=== PATIENT | female | born 1980 | race Caucasian/White ===

== ENCOUNTER → 2020-10-19 01:41 | Outpatient (CLI) | payer BC, SELFPAY ==
[2020-10-19 19:16] LABS: SARS-CoV-2 RNA PCR Negative
== END ==
PROVIDERS: PCP Family Medicine; Visit Provider Internal Medicine Gastroenterology
DX: Z01.812 Encounter for preprocedural laboratory examination (principal); Z20.822 Contact with and (suspected) exposure to COVID-19
CPT/HCPCS: C9803; U0003; U0005

== ENCOUNTER 2020-10-22 00:39 | Day surgery (SDC) | payer BC, SELFPAY ==
[2020-10-15 14:28] VITALS: BMI 28.5
--- NOTE | 2020-10-22 10:45 | WPDANESEPPF ---
Anes - Initial Pre Proc Eval Procedure: Operation Date: 10/22/20 11:45 Proposed Procedures p Esophagogastroduodenoscopy - Ashok Soriano MD Date/Time: 10/22/20 10:45 Surgeon: Ashok Soriano MD Pre Op Diagnosis: GERD Patient Data Age: 40 Gender: F Height: 1.6 m Weight: 73 kg Allergies Allergy/AdvReac Type Severity Reaction Status Date / Time No Known Allergies Allergy Unknown Verified 10/22/20 10:34 Home Medications Medication Instructions Recorded Confirmed Type sertraline 50 mg tablet 50 mg PO DAILY 07/04/19 10/22/20 History L norgest/E estradiol-E estrad 1 tablet PO DAILY 06/17/20 10/22/20 History 0.15 mg-30 mcg (84)/10 mcg(7) tabs,3mos rosuvastatin 5 mg tablet 5 mg PO DAILY #30 tablet 09/30/20 10/22/20 Rx levothyroxine 100 mcg tablet 100 mcg PO DAILY #90 tablet 10/10/20 10/22/20 Rx pantoprazole 40 mg PO QAM 10/15/20 10/22/20 History famotidine 20 mg tablet 20 mg PO QHS #30 tablet 10/22/20 Rx Patient hx anesthesia problems: none Family hx anesthesia problems: none PMFSH Past Medical History Medical History (Updated 10/21/20 @ 10:58 by Ki Obregon DO) Adult hypothyroidism Depression SHANNEN (generalized anxiety disorder) Gestational diabetes Hypothyroidism Mixed hyperlipidemia (normal spontaneous vaginal delivery) depression Family History Family History Grandparent Acute myocardial infarction Social History Social History Social History: Smoking status: Never smoker Second hand tobacco smoke exposure: No Alcohol intake: current Drinks per week: 2 Substance use: never Substance use type: does not use Living arrangements: with family Additional occupation/education comments: stay at home mom Gender identity (if verbalized by the patient): Female Spiritual care concerns: No Anes - Eval Final PreProcedure Day of Procedure 10/22/20 10:45 Patient weight: overweight Heart: regular rate and rhythm Lungs: clear to auscultation and normal air movement Airway: Mallampati scale class II Neurological: alert and oriented Last oral intake: >/= 8 hours ASA classification: III Emergent: no Anesthetic plan: proceed Anesthesia type and monitoring: general GIVS and standard monitoring Informed Consent: The patient's anesthetic plan and its attendant risks and benefits were discussed with the patient/family/POA. Questions were solicited and answers provided to the satisfaction of the patient/family/POA.
[2020-10-22 10:52] VITALS: BP 136/84; PULSE 86; RESP 18; TEMP 36.2; O2SAT 99; BMI 28.7
[2020-10-22] MEDS: LACTATED RINGERS 1,000 ML 150 ML IV CONT (11:02)
--- NOTE | 2020-10-22 11:24 | PM.HPGS ---
History of Present Illness History of Present Illness Consent: Risks, benefits, and alternatives have been discussed and questions answered. Patient agrees to proceed with procedure. Chief complaint: GERD Narrative: Bekah Colon is a 40 year old female with gerd on protonix and pepcid, still symptomatic some days, never had egd Review of Systems Constitutional: Constitutional: Denies headache(s) and Denies weakness Eyes: Eyes: Denies blurry vision ENT: Reports Normal hearing present, Denies headache(s) and Denies neck pain Cardiovascular: Cardiovascular: Denies chest pain and Denies dyspnea Respiratory: Respiratory: Denies dyspnea Gastrointestinal: Gastrointestinal: Reports no additional gastrointestinal complaints Genitourinary: Genitourinary: Denies dysuria Musculoskeletal: Musculoskeletal: Denies neck pain Integumentary/Breasts: Skin/Breast: Denies dry skin Neurologic: Reports Normal hearing present, Denies headache(s) and Denies weakness Psychiatric: Psychiatric: Denies anxiety Endocrine: Endocrine: Denies change in body appearance Hematologic/Lymphatic: Hematologic/Lymphatic: Denies easy bleeding Allergic/Immunologic: Allergic/Immunologic: Denies urticaria PMFSH Past Medical History Medical History (Updated 10/21/20 @ 10:58 by Ki Obregon DO) Adult hypothyroidism Depression SHANNEN (generalized anxiety disorder) Gestational diabetes Hypothyroidism Mixed hyperlipidemia (normal spontaneous vaginal delivery) depression Family History Family History Grandparent Acute myocardial infarction Social History Social History Social History: Smoking status: Never smoker Second hand tobacco smoke exposure: No Alcohol intake: current Drinks per week: 2 Substance use: never Substance use type: does not use Living arrangements: with family Additional occupation/education comments: stay at home mom Gender identity (if verbalized by the patient): Female Spiritual care concerns: No Meds Home Medications and Allergies Home Medications Medication Instructions Recorded Confirmed Type sertraline 50 mg tablet 50 mg PO DAILY 07/04/19 10/22/20 History L norgest/E estradiol-E estrad 1 tablet PO DAILY 06/17/20 10/22/20 History 0.15 mg-30 mcg (84)/10 mcg(7) tabs,3mos rosuvastatin 5 mg tablet 5 mg PO DAILY #30 tablet 09/30/20 10/22/20 Rx levothyroxine 100 mcg tablet 100 mcg PO DAILY #90 tablet 10/10/20 10/22/20 Rx pantoprazole 40 mg PO QAM 10/15/20 10/22/20 History famotidine 20 mg tablet 20 mg PO QHS #30 tablet 10/22/20 Rx Allergies Allergy/AdvReac Type Severity Reaction Status Date / Time No Known Allergies Allergy Unknown Verified 10/22/20 10:34 Vital Signs Vital Signs - 24 hr 10/22/20 10:52 Temperature 97.2 F L Pulse Rate 86 Respiratory Rate 18 Blood Pressure 136/84 Pulse Oximetry 99 Exam Const: General: comfortable and no acute distress HENMT: General nose exam: Normal nares present Eyes: General: appearance normal, both eyes and all related structures Neck: Neck: no JVD Resp: Auscultation: clear to auscultation bilaterally Cardio: Rate: regular rate Rhythm: regular rhythm GI: Inspection: non-distended GI Palp: Yes Soft to palpation Skin: General skin exam: normal color Neuro: General: gait normal Speech: normal speech Extrem: General: normal to inspection Psych: Mental Status: mental status grossly normal Assessment and Plan Assessment and plan (1) GERD (gastroesophageal reflux disease): Code(s): K21.9 - Gastro-esophageal reflux disease without esophagitis Status: Acute Assessment and Plan: egd with bx, already on ppi
[2020-10-22 11:41] VITALS: BP 100/65; PULSE 78; RESP 22; O2SAT 98
[2020-10-22 11:51] VITALS: BP 103/71; PULSE 76; RESP 20; O2SAT 99
[2020-10-22 12:01] VITALS: BP 123/86; PULSE 77; RESP 18; O2SAT 100
== END 2020-10-22 12:13 | disposition home or self-care (01) ==
PROVIDERS: PCP Family Medicine; Visit Provider Internal Medicine Gastroenterology
PROC: 0DJ08ZZ Inspection of Upper Intestinal Tract, Via Natural or Artificial Opening Endoscopic (ICD-10-PCS; CPT 43235; principal; 2020-10-22 11:45)
DX: K21.00 Gastro-esophageal reflux disease with esophagitis, without bleeding (principal); K29.50 Unspecified chronic gastritis without bleeding; K22.70 Barrett's esophagus without dysplasia; E03.9 Hypothyroidism, unspecified; F32.9 Major depressive disorder, single episode, unspecified; E78.2 Mixed hyperlipidemia; F41.1 Generalized anxiety disorder
CPT/HCPCS: 43239; 88305; 88313; C9803; J2704; J7120; U0003; U0005

== ENCOUNTER 2022-07-29 00:29 | Day surgery (SDC) | payer BC, SELFPAY ==
[2022-06-19 09:39] VITALS: BMI 26.6
[2022-07-16 11:56] VITALS: BMI 26.6
[2022-07-29 08:17] VITALS: BP 129/86; PULSE 103; RESP 16; TEMP 35.9; O2SAT 98
[2022-07-29] MEDS: LACTATED RINGERS 1,000 ML 150 ML IV CONT (08:18)
--- NOTE | 2022-07-29 08:53 | WPDANESEPPF ---
Anes - Initial Pre Proc Eval Procedure: Operation Date: 07/29/22 09:30 Proposed Procedures p Esophagogastroduodenoscopy - Ashok Soriano MD Date/Time: 07/29/22 08:53 Surgeon: Ashok Soriano MD Pre Op Diagnosis: GERD, Barretts Esophagus Patient Data Age: 41 Gender: F Height: 1.6 m Weight: 67.4 kg Last Vital Signs Temp 96.7 F L 07/29/22 08:17 Pulse 103 H 07/29/22 08:17 Resp 16 07/29/22 08:17 BP 129/86 07/29/22 08:17 Pulse Ox 98 07/29/22 08:17 O2 Del Method Room Air 07/29/22 08:17 Allergies Allergy/AdvReac Type Severity Reaction Status Date / Time No Known Allergies Allergy Unknown Verified 07/29/22 08:15 Home Medications Medication Instructions Recorded Confirmed Type sertraline 50 mg tablet 75 mg PO DAILY 07/04/19 07/29/22 History pantoprazole 40 mg tablet,delayed 40 mg PO DAILY 06/19/22 07/29/22 History release dextroamphetamine-amphetamine ER 20 mg PO DAILY #10 caps 07/24/22 07/29/22 Rx 20 mg 24hr capsule,extend release (Adderall XR) levothyroxine 125 mcg tablet 125 mcg PO DAILY #14 tabs 07/24/22 07/29/22 Rx Patient hx anesthesia problems: none Family hx anesthesia problems: none Results Review: All pre-operative results and documents have been reviewed as part of the pre-operative evaluation. [facility] Past Medical History Medical History (Updated 06/24/22 @ 10:00 by Luciana Gutierrez NP) Adult hypothyroidism Depression SHANNEN (generalized anxiety disorder) Gastritis GERD (gastroesophageal reflux disease) Gestational diabetes Hypothyroidism Mixed hyperlipidemia (normal spontaneous vaginal delivery) Overweight (BMI 25.0-29.9) depression Family History Family History Grandparent Acute myocardial infarction Unknown Diabetes mellitus Social History Social History Social History: Smoking status: Former smoker Second hand tobacco smoke exposure: No Alcohol intake: current Drinks per week: 2 Alcohol use details: occasionally Substance use: never Substance use type: does not use Living arrangements: with family Occupation/Education: unemployed Additional occupation/education comments: stay at home mom Gender identity (if verbalized by the patient): Female Sexual Orientation (if Verbalized by the Patient): Straight or Heterosexual Spiritual care concerns: No Anes - Eval Final PreProcedure Day of Procedure 07/29/22 08:53 Patient weight: normal Heart: regular rate and rhythm Lungs: clear to auscultation Airway: Mallampati scale class II Neurological: alert and oriented Last oral intake: >/= 8 hours ASA classification: II Emergent: no Anesthetic plan: proceed Anesthesia type and monitoring: general GIVS and standard monitoring Results Review: All pre-operative results and documents have been reviewed as part of the pre-operative evaluation. Informed Consent: The patient's anesthetic plan and its attendant risks and benefits were discussed with the patient/family/POA. Questions were solicited and answers provided to the satisfaction of the patient/family/POA.
--- NOTE | 2022-07-29 09:18 | PM.HPGS ---
History of Present Illness History of Present Illness Consent: Risks, benefits, and alternatives have been discussed and questions answered. Patient agrees to proceed with procedure. Chief complaint: GERD, Barretts Esophagus Narrative: Bekah Colon is a 41 year old female with gerd on protonix, also had short segment mancini's, doing well on ppi Review of Systems Constitutional: Constitutional: Denies headache(s) and Denies weakness Eyes: Eyes: Denies blurry vision ENT: Reports Normal hearing present, Denies headache(s) and Denies neck pain Cardiovascular: Cardiovascular: Denies chest pain and Denies dyspnea Respiratory: Respiratory: Denies dyspnea Gastrointestinal: Gastrointestinal: Reports no additional gastrointestinal complaints Genitourinary: Genitourinary: Denies dysuria Musculoskeletal: Musculoskeletal: Denies neck pain Integumentary/Breasts: Skin/Breast: Denies dry skin Neurologic: Reports Normal hearing present, Denies headache(s) and Denies weakness Psychiatric: Psychiatric: Denies anxiety Endocrine: Endocrine: Denies change in body appearance Hematologic/Lymphatic: Hematologic/Lymphatic: Denies easy bleeding Allergic/Immunologic: Allergic/Immunologic: Denies urticaria [facility] Past Medical History Medical History (Updated 06/24/22 @ 10:00 by Luciana Gutierrez NP) Adult hypothyroidism Depression SHANNEN (generalized anxiety disorder) Gastritis GERD (gastroesophageal reflux disease) Gestational diabetes Hypothyroidism Mixed hyperlipidemia (normal spontaneous vaginal delivery) Overweight (BMI 25.0-29.9) depression Family History Family History Grandparent Acute myocardial infarction Unknown Diabetes mellitus Social History Social History Social History: Smoking status: Former smoker Second hand tobacco smoke exposure: No Alcohol intake: current Drinks per week: 2 Alcohol use details: occasionally Substance use: never Substance use type: does not use Living arrangements: with family Occupation/Education: unemployed Additional occupation/education comments: stay at home mom Gender identity (if verbalized by the patient): Female Sexual Orientation (if Verbalized by the Patient): Straight or Heterosexual Spiritual care concerns: No Meds Home Medications and Allergies Home Medications Medication Instructions Recorded Confirmed Type sertraline 50 mg tablet 75 mg PO DAILY 07/04/19 07/29/22 History pantoprazole 40 mg tablet,delayed 40 mg PO DAILY 06/19/22 07/29/22 History release dextroamphetamine-amphetamine ER 20 mg PO DAILY #10 caps 07/24/22 07/29/22 Rx 20 mg 24hr capsule,extend release (Adderall XR) levothyroxine 125 mcg tablet 125 mcg PO DAILY #14 tabs 07/24/22 07/29/22 Rx Allergies Allergy/AdvReac Type Severity Reaction Status Date / Time No Known Allergies Allergy Unknown Verified 07/29/22 08:15 Vital Signs Vital Signs - 24 hr 07/29/22 08:17 Temperature 96.7 F L Pulse Rate 103 H Respiratory Rate 16 Blood Pressure 129/86 Pulse Oximetry 98 Oxygen Delivery Room Air Exam Const: General: comfortable and no acute distress HENMT: Face/Nose/Sinus: Normal nares present Eyes: General: appearance normal, both eyes and all related structures Neck: Neck: no JVD Resp: Auscultation: clear to auscultation bilaterally Cardio: Rate: regular rate Rhythm: regular rhythm GI: Inspection: non-distended GI Palp: Yes Soft to palpation Skin: General skin exam: normal color Neuro: General: gait normal Speech: normal speech Extrem: General: normal to inspection Psych: Mental Status: mental status grossly normal Assessment and Plan Assessment and plan (1) GERD (gastroesophageal reflux disease): Code(s): K21.9 - Gastro-esophageal reflux disease without esophagitis
[2022-07-29 09:29] VITALS: BP 99/70; PULSE 87; RESP 20; O2SAT 99
[2022-07-29 09:39] VITALS: BP 100/68; PULSE 96; RESP 20; O2SAT 100
[2022-07-29 09:49] VITALS: BP 109/72; PULSE 81; RESP 22; O2SAT 100
== END 2022-07-29 09:57 | disposition home or self-care (01) ==
PROVIDERS: PCP Family Medicine; Visit Provider Internal Medicine Gastroenterology
PROC: 0DJ08ZZ Inspection of Upper Intestinal Tract, Via Natural or Artificial Opening Endoscopic (ICD-10-PCS; CPT 43235; principal; 2022-07-29 09:30)
DX: K21.9 Gastro-esophageal reflux disease without esophagitis (principal); K22.70 Barrett's esophagus without dysplasia; K29.50 Unspecified chronic gastritis without bleeding; E03.9 Hypothyroidism, unspecified; F41.1 Generalized anxiety disorder; F32.A Depression, unspecified; Z87.891 Personal history of nicotine dependence
CPT/HCPCS: 43239; 88305; J2704; J7120

== ENCOUNTER 2023-03-17 08:47 | Outpatient (CLI) | payer BC, SELFPAY ==
--- NOTE | 2023-03-23 20:24 | WPDHOMESLEEP ---
Sleep Study - Home Unattended Date of Study: 03/17/23 Ordering Provider: Xiomara Watts PA-C Interpreting Provider: Nova Oropeza, DO Home Sleep Study Type: Watch PAT Height: 1.6 m Weight: 65.771 kg Body Mass Index: 25.7 Neck Circumference (inches): 13 [place]: 5 Reason for Sleep Study Snoring, witnessed apneas Sleep History The patient is a 42-year-old female that had a sleep study ordered by her primary care for evaluation of sleep apnea. The patient frequently awakens from sleep short of breath. She occasionally awakens at night with heartburn, belching or cough. She frequently snores and is frequently loud enough that others complain. She frequently has trouble sleeping when she has a cold. She occasionally wakes up gasping for air throughout the night. She occasionally has breathing problems at night observed by herself or others. She rarely sweats excessively at night. She rarely has heart palpitations or irregular heartbeats during the night. She occasionally falls asleep during the day but never while driving. She denies sleep paralysis and cataplexy. She denies having trouble at school or work due to sleepiness. She occasionally experiences vivid dreamlike scenes upon awakening or falling asleep. He denies feeling afraid of going to sleep. She denies having nightmares. She occasionally remembers her dreams. She occasionally has thoughts racing through her mind. She denies feeling sad or depressed. She occasionally has anxiety. She rarely has muscular tension. She occasionally notices parts of her body jerk. She occasionally kicks during the night. She frequently has crawling and aching feelings in her legs but denies having leg pain during the night. She denies having jaw pain in the morning. She goes to bed at 10:00 p.m. on weekdays and at 11:00 p.m. on the weekends. It takes her few minutes to fall asleep. She wakes up 3-4 times throughout the night to urinate but it can take up to an hour for her to fall back asleep. She wakes up between 7-7:30 a.m. on both weekdays and weekends. He typically gets 8 hours of sleep per night. She will stay in bed for 1-2 minutes after waking up in the morning. She currently lives with her and 2 children. She denies consuming any caffeinated beverages within 2 hours of bedtime. She denies engaging in physical exercise before bedtime. She will read and watch television before falling asleep. She will occasionally take naps in the afternoon or the evening and they are refreshing. She consumes 2-3 caffeinated beverages per day. She will consume a couple alcoholic beverages on the weekends. She denies tobacco and recreational drug use. [facility] Past Medical History Medical History Adult hypothyroidism Depression SHANNEN (generalized anxiety disorder) Gastritis GERD (gastroesophageal reflux disease) Gestational diabetes Hypothyroidism Mixed hyperlipidemia (normal spontaneous vaginal delivery) Overweight (BMI 25.0-29.9) depression Family History Family History Grandparent Acute myocardial infarction Unknown Diabetes mellitus Social History Social History Social History: Smoking status: Former smoker Second hand tobacco smoke exposure: No Alcohol intake: current Alcohol use details: occasionally Substance use: never Substance use type: does not use Lack of Transportation: No Lack of Food: Never True Current Housing: I Have Housing Concerned About Future Housing: No Difficulty Paying Gas/Electric Bills: No Difficulty Paying for Meds: No Currently Unemployed: YES Education: Decline to Answer Difficulty w/ Childcare or Family Care: No Living arrangements: with family Occupation/Education: unemployed Additional occupation/e
[2023-03-23 20:31] VITALS: BMI 25.7
== END 2023-03-18 13:33 | disposition home or self-care (01) ==
LOC: ANHCSM 08:49
PROVIDERS: PCP Family Medicine; Visit Provider Physician Assistant
DX: R40.0 Somnolence (principal); R06.83 Snoring
CPT/HCPCS: 95800

== ENCOUNTER 2023-05-26 08:06 | Outpatient (CLI) | payer BC, SELFPAY ==
[2023-06-15 16:16] VITALS: BMI 25.7
--- NOTE | 2023-06-15 16:16 | WPDSLEEPSTUD ---
Sleep Study Date of Study: 05/26/23 Ordering Provider: Xiomara Watts PA-C Interpreting Physician: Nova Oropeza, Sleep Study Type: Polysomnogram Height: 1.6 m Weight: 65.771 kg Body Mass Index: 25.7 Neck Circumference (inches): 13 [place]: 5 Reason for Sleep Study The patient had a WatchPAT home sleep test on 03/17/2023 that showed an overall AHI of 2.2 with desaturation down to 85%. She had a discrepancy between her AHI and RDI. Sleep History The patient is a 42-year-old female that had a sleep study ordered by her primary care for evaluation of sleep apnea.? The patient frequently awakens from sleep short of breath.? She occasionally awakens at night with heartburn, belching or cough.? She frequently snores and is frequently loud enough that others complain.? She frequently has trouble sleeping when she has a cold.? She occasionally wakes up gasping for air throughout the night.? She occasionally has breathing problems at night observed by herself or others.? She rarely sweats excessively at night.? She rarely has heart palpitations or irregular heartbeats during the night.? She occasionally falls asleep during the day but never while driving.? She denies sleep paralysis and cataplexy.? She denies having trouble at school or work due to sleepiness.? She occasionally experiences vivid dreamlike scenes upon awakening or falling asleep.? She denies feeling afraid of going to sleep.? She denies having nightmares.? She occasionally remembers her dreams.? She occasionally has thoughts racing through her mind.? She denies feeling sad or depressed.? She occasionally has anxiety.? She rarely has muscular tension.? She occasionally notices parts of her body jerk.??She occasionally kicks during the night.? She frequently has crawling and aching feelings in her legs but denies having leg pain during the night.??She denies having jaw pain in the morning.? She goes to bed at 10:00 p.m. on weekdays and at 11:00 p.m. on the weekends.? It takes her few minutes to fall asleep.? She wakes up 3-4 times throughout the night to urinate but it can take up to an hour for her to fall back asleep.? She wakes up between 7-7:30 a.m. on both weekdays and weekends.? She typically gets 8 hours of sleep per night.? She will stay in bed for 1-2 minutes after waking up in the morning.? She currently lives with her and 2 children.? She denies consuming any caffeinated beverages within 2 hours of bedtime.? She denies engaging in physical exercise before bedtime.? She will read and watch television before falling asleep.? She will occasionally take naps in the afternoon or the evening and they are refreshing.? She consumes 2-3 caffeinated beverages per day.? She will consume a couple alcoholic beverages on the weekends.? She denies tobacco and recreational drug use. [facility] Past Medical History Medical History Adult hypothyroidism Depression SHANNEN (generalized anxiety disorder) Gastritis GERD (gastroesophageal reflux disease) Gestational diabetes Hypothyroidism Mixed hyperlipidemia (normal spontaneous vaginal delivery) Overweight (BMI 25.0-29.9) depression Family History Family History Grandparent Acute myocardial infarction Unknown Diabetes mellitus Social History Social History Social History: Smoking status: Former smoker Second hand tobacco smoke exposure: No Alcohol intake: current Alcohol use details: occasionally Substance use: never Substance use type: does not use Lack of Transportation: No Lack of Food: Never True Current Housing: I Have Housing Concerned About Future Housing: No Difficulty Paying Gas/Electric Bills: No Difficulty Paying for Meds: No Currently Unemployed: YES Education: Decline to Answer Difficulty w/ [employer]
== END 2023-05-27 06:10 | disposition home or self-care (01) ==
LOC: ANHCSM 08:07
PROVIDERS: PCP Family Medicine; Visit Provider Physician Assistant
DX: G47.61 Periodic limb movement disorder (principal); R40.0 Somnolence; R06.83 Snoring
CPT/HCPCS: 95810

== ENCOUNTER 2024-05-11 15:00 | Outpatient (CLI) | payer BC, SELFPAY ==
--- NOTE | ~2024-05-11 | MM_ITS ---
EXAMINATION: MM screening [place] BI w [facility] HISTORY: Baseline screening mammography TECHNIQUE: Craniocaudal and mediolateral oblique 3-D tomosynthesis images were obtained and synthetic 2-D images were generated. CAD analysis was submitted and interpreted. COMPARISON: No prior mammogram is available for comparison at this institution. BREAST PARENCHYMAL COMPOSITION: Scattered fibroglandular pattern FINDINGS: Indeterminate parenchymal pattern best seen on the CC view within the outer left breast for which spo t compression followed by a focused ultrasound is recommended. Otherwise symmetric parenchymal pattern without suspicious microcalcifications, discrete masses or si gnificant asymmetry. IMPRESSION: Indeterminate parenchymal pattern best seen on the CC view within the outer left breast for which spo t compression followed by a focused ultrasound is recommended. BI-RADS Category 0: Incomplete, additional imaging is needed. Reviewed, dictated and finalized at location A. S INSTRUMENT REPAIR TECHNICIAN IMPRESSION: Indeterminate parenchymal pattern best seen on the CC view within the outer lef t breast for which spot compression followed by a focused ultrasound is recomme nded. BI-RADS Category 0: Incomplete, additional imaging is needed.
== END 2024-05-11 15:01 | disposition home or self-care (01) ==
LOC: ANHIMG 15:02
PROVIDERS: PCP Family Medicine; Visit Provider Physician Assistant
DX: Z12.31 Encounter for screening mammogram for malignant neoplasm of breast (principal); R92.8 Other abnormal and inconclusive findings on diagnostic imaging of breast
CPT/HCPCS: 77063; 77067

== ENCOUNTER 2024-06-02 13:10 | Outpatient (CLI) | payer BC, SELFPAY ==
--- NOTE | ~2024-06-02 | US_ITS ---
US breast LT limited INDICATION: Left breast asymmetry TECHNIQUE: Dedicated Limited left breast ultrasound COMPARISON: Comparison to multiple prior studies sequentially, with oldest reviewed study dated 04/22. BREAST DENSITY: Not dense: There are scattered areas of fibroglandular density. FINDINGS: The left breast is/are composed of normal heterogeneous echotexture without focal solid or cystic mass. IMPRESSION: 1: Normal limited left breast ultrasound. Left breast asymmetry consistent with benign asymmetric fib roglandular tissue. Routine yearly screening mammogram and regular clinical breast examination are recommended. BI-RADS CATEGORY 2 - BENIGN FINDINGS Reviewed, dictated and finalized at location B. INE IRONER IMPRESSION: 1: Normal limited left breast ultrasound. Left breast asymmetry consistent with benign asymmetric fibroglandular tissue. Routine yearly screening mammogram and regular clinical breast examination are recommended. BI-RADS CATEGORY 2 - BENIGN FINDINGS
--- NOTE | ~2024-06-02 | MM_ITS ---
EXAMINATION: MM diagnostic ky LT w bryant HISTORY: Follow-up left breast asymmetry TECHNIQUE: Additional 3-D tomosynthesis images of the left breast were performed and synthetic 2-D im ages were generated. CAD analysis was submitted and interpreted. COMPARISON: 05/11/2024 BREAST PARENCHYMAL COMPOSITION: Not dense: There are scattered areas of fibroglandular density. FINDINGS: There is a persistent focal asymmetry laterally in the left breast, middle third, although slightly less dense with spot compression views. No discrete mass. There are no suspicious calcificat ions. IMPRESSION: 1. Persistent focal left breast asymmetry on CC view laterally, middle third. 2. Limited left breast ultrasound recommended. BI-RADS Category 0: Incomplete: Needs additional imaging evaluation. Reviewed, dictated and finalized at location B. [facility]
--- OUTSIDE RECORDS SUMMARY | 2024-06-02 13:20 | XMS_ITS | Continuity of Care Document ---
Author Organization [facility] Address [address] [place] [address] Phone Care Team Providers Care Chucking Machine Set Up Operator Name Role Phone Unavailable Unavailable Unavailable Advance Directives Directive Yes / No Effective Date File Name No Information Encounters Encounter Description Practice Location Reason(s) For Visit Diagnoses Date Provider Providers Copied on Encounter [facility], [address] [facility], [place], [place], [id number], tel:[phone] [facility] No Information No Information Referring Provider: MICHELL Albarado, [address], [place], [address]. tel:[phone] Family History Family Member Type Diagnosis Age At Onset No Information Payers Payer name Insurance type Covered republican ID Authoriza tion(s) [facility] [id number] Social History Type Description Quantity Date Captured Comments Sex Female Smoking Status No Information Vital Signs Date / Time: Height Weight BMI Pulse Rate Blood Pressure Temperature Respiratory Rate Body Surface Area Head Circumference BMI percentile Pulse Ox Inhaled Ox 187.00 lbs Chief Complaint And Reason For Visit No Information History Of Present Illness Encounter Date Complaint History Of Prese nt Illness No Information Instructions Date Instruction Additional Infor mation No Information Assessments Type Assessment Date No Information
== END 2024-06-02 13:11 | disposition home or self-care (01) ==
LOC: ANHIMG 13:15
PROVIDERS: PCP Family Medicine; Visit Provider Student in an Organized Health Care Education/Training Program
DX: R92.8 Other abnormal and inconclusive findings on diagnostic imaging of breast (principal); N64.89 Other specified disorders of breast
CPT/HCPCS: 76642; 77061; 77065; G0279